=== PATIENT | female | born 1985 | race Caucasian/White ===

== ENCOUNTER 2022-05-31 11:52 | Emergency (ER) | payer MEDICAID ==
[~2022-05-31] VITALS: Ht 170.2 cm; Wt 90.7 kg
--- NOTE | 2022-05-31 12:42 | NUR ---
Patient to ER bed H2 to gown for evaluation. Side rails up.
--- NOTE | 2022-05-31 13:00 | NUR ---
Pt brought by self, A&Ox4, pt presents to ER with lower abdominal pain,N/V/D, skin pink and warm, cap refill <3, VSS, respirations even and unlabored.
[2022-05-31 13:33] VITALS: BP_SYST 11
[2022-05-31 14:31] LABS: BASOPHILS % (AUTO) 0.3 % (0.0-2.0); HEMATOCRIT 42.8 % (36-48); HEMOGLOBIN 14.4 g/dL (12.0-16.0); LYMPHOCYTES % (AUTO) 5.5 % (20.5-51.5); MEAN CORPUSCULAR HEMOGLOBIN 30 pg (27-31); MEAN CORPUSCULAR HGB CONC 34 % (32-36); MEAN CORPUSCULAR VOLUME 89 fL (79.0-98.0); MONOCYTES # (AUTO) 0.6 K/uL (0.0-1.0); MONOCYTES % (AUTO) 3.2 % (1.7-9.3); NEUTROPHILS # (AUTO) 16.8 K/uL (1.8-7.7); PLATELET COUNT (AUTO) 363 K/uL (130-430); RED BLOOD CELL COUNT(AUTO) 4.81 MIL/uL (4.2-6.2); RED CELL DISTRIBUTION WIDTH 14.3 % (9.0-15.0); WHITE BLOOD COUNT (AUTO) 18.5 K/uL (4.8-10.8)
[2022-05-31 14:44] LABS: CALCIUM 9.6 mg/dL (8.4-11.0); CREATININE 1.22 mg/dL (0.55-1.30); POTASSIUM 3.3 mmol/L (3.5-5.1)
[2022-05-31 14:51] LABS: ALBUMIN 3.9 g/dL (3.4-4.8)
--- NOTE | 2022-05-31 15:02 | NUR ---
Dr Gamble evaluating patient at bedside
[2022-05-31] MEDS ORDERED: KETOROLAC TROMETHAMINE 30 MG VIAL IM ONE (15:15)
[2022-05-31] MEDS ORDERED: ONDANSETRON 4 MG ODT TAB PO ONE (15:15)
--- NOTE | 2022-05-31 17:13 | NUR ---
Pt A&Ox4, VSS, pt c/o persistent abd pain and nausea MD notified, awaiting for room availability
[2022-05-31] MEDS ORDERED: NACL 0.9% 1,000 ML IV ONE (17:45)
[2022-05-31] MEDS ORDERED: HALOPERIDOL LACTATE 5 MG/ML VIAL IVP ONE (17:45)
[2022-05-31] MEDS ORDERED: ONDANSETRON HCL 4 MG/2 ML VIAL IVP ONE (17:45)
[2022-05-31] MEDS ORDERED: ONDA-8 TL (18:29)
[2022-05-31 18:51] VITALS: BP_SYST 110
--- NOTE | 2022-05-31 18:53 | NUR ---
Patient given written and verbal discharge instructions and verbalizes understanding. ER MD discussed with patient the results and treatment provided. Patient in stable condition. ID arm band removed. Rx of Zofran given. Patient educated on pain management and to follow up with PMD. Pain Scale 2/10. Opportunity for questions provided and answered. Medication side effect fact sheet provided.
== END 2022-05-31 18:53 | disposition home or self-care (01) ==
LOC: SED 11:52
DX: F12.188 Cannabis abuse with other cannabis-induced disorder (principal); R11.10 Vomiting, unspecified; R11.0 Nausea; R10.31 Right lower quadrant pain; Z79.899 Other long term (current) drug therapy
CPT/HCPCS: 99284; 74176; 96374; 80053; 84703; 83690; 85025; 36415; 76376; 96372; Q0162; J1885; J2405